=== PATIENT | male | born 1990 | race Caucasian/White ===

== ENCOUNTER 2018-05-15 00:51 | Inpatient (IN) | payer OTHER ==
[~2018-05-15] VITALS: Ht 198.1 cm; Wt 135.6 kg
[2018-05-15] MEDS ORDERED: CELEXA20 MG PO (01:02)
[2018-05-15 01:03] VITALS: BP 137/74
[2018-05-15 01:20] LABS: URINE BLOOD NEGATIVE (Negative); URINE CLARITY CLEAR; URINE COLOR DARK YELLOW; URINE GLUCOSE-RANDOM NEGATIVE (Negative); URINE LEUKOCYTES-REFLEX NEGATIVE (Negative); URINE NITRITE-REFLEX NEGATIVE (Negative); URINE PROTEIN TRACE (Negative); URINE SPECIFIC GRAVITY 1.015 (1.005-1.030)
[2018-05-15 01:21] LABS: ICTOTEST (BILI CONFIRMATORY) Positive (Negative); URINE BILIRUBIN 2+ (Negative); URINE KETONES 3+ (Negative)
[2018-05-15 01:31] LABS: ABSOLUTE LYMPHOCYTES 0.9 thou/uL (0.8-5.3); ABSOLUTE MONOCYTES 1.2 thou/uL (0.0-1.2); ABSOLUTE NEUTROPHILS 7.1 thou/uL (1.6-8.1); BASOPHILS 0.2 %; EOSINOPHILS 0.4 %; HEMATOCRIT 41.4 % (42.0-52.0); HEMOGLOBIN 13.9 gm/dL (14.0-18.0); LYMPHOCYTES 9.3 %; MCH 30.3 pg (26.0-34.0); MCHC 33.6 g/dL (28.0-37.0); MCV 90.2 fL (80.0-100.0); MONOCYTES 13.3 %; MPV 8.4 fl. (7.2-11.1); NUCLEATED RBCS 0 /100WBC; PLATELET COUNT* 210 thou/uL (150-400); POLYS 76.8 %; RBC 4.59 mil/uL (4.50-6.00); RDW-CV 13.7 % (10.5-14.5); WBC 9.2 thou/uL (4.0-11.0)
[2018-05-15 01:37] LABS: CALCIUM 9.1 mg/dL (8.5-10.1); CREATININE 0.8 mg/dL (0.6-1.3); POTASSIUM 3.6 mmol/L (3.5-5.1)
[2018-05-15 01:42] LABS: ALBUMIN 4.2 g/dL (3.4-5.0); TOTAL BILIRUBIN 3.5 mg/dL (<0.1-1.0); TOTAL PROTEIN 7.4 g/dL (6.4-8.2)
[2018-05-15 04:11] VITALS: BP 125/75
[2018-05-15 04:15] VITALS: BP 118/62
--- NOTE | 2018-05-15 04:57 | NUR ---
PATIENT ARRIVED BY CART FROM ER TO ROOM 113 IN STABLE CONDITION AT 0415. ALERT AND ORIENTED X4. DENIES PAIN/NAUSEA AT THIS TIME. AT BEDSIDE. VITALS STABLE. CONTINUE TO MONITOR.
[2018-05-15 08:19] VITALS: BP 109/56
[2018-05-15 11:42] LABS: INR 1.1; PROTIME 10.7 Seconds (9.20-11.50)
[2018-05-15 11:47] LABS: ALBUMIN 3.9 g/dL (3.4-5.0); DIRECT BILIRUBIN 0.9 mg/dL (<0.1-0.3); TOTAL BILIRUBIN 2.2 mg/dL (<0.1-1.0)
[2018-05-15 15:44] VITALS: BP 112/57
--- NOTE | 2018-05-15 16:00 | NUR ---
PT.GAVE PERMISSION FOR CM TO SPEAK WITH MOM AND GRANDMA PRESENT. HE SAID HE LIVES WITH HIS . HE IS INDEPENDENT AND WORKS. HE DOES NOT HAVE INSURANCE. GAVE HIM PACKET FOR THE UNINSURED ALONG WITH DISCOUNT DRUG CARD. DISCUSSED PACKET AND HOW TO OBTAIN FINANCIAL ASSISTANCE FORM FROM ADMITTING. MOTHER WAS APPRECIATIVE FOR THE INFORMATION.
[2018-05-15 21:00] VITALS: BP 104/61
--- NOTE | 2018-05-15 21:07 | NUR ---
ASSUMED CARES OF PT AT 0700. PT IN BED, BED IN LOW LOCKED POSITION, CALL BUTTON AND PERSONAL ITEMS IN PT REACH. PT A&O X4, VSS ON RA, HRRR PER AUSCULTATION/ALEENA. LCTAB, AFEBRILE, PERRLA. PT UP AD KRISH. OCC. PAIN AND NAUSEA, TREATED WITH MEDS, EFFECTIVE. SKIN INTACT. RIGHT AC 20 GAUGE IV PATENT TO FLUIDS/NS 100 ML/HR. CONSULTS - SURGERY AND GI. PT REFUSES SCD'S SO HE CAN GET UP HE WANTS. FAMILY AT BEDSIDE ALL SHIFT. POSSIBLE ERCP TOMORROW BASED ON MORNING LABS/BILIRUBIN. PT COOPERATIVE AND CALM. HOURLY ROUNDING COMPLETED. REPORT TO ELECTRICAL MAINTENANCE WORKER FOR CONTINUED CARES. PT PROGRESSING TOWARDS GOAL. REGULAR/VEGAN DIET TOLERATED. NPO AT MIDNIGHT TONIGHT.
[2018-05-16 04:05] LABS: ABSOLUTE EOSINOPHILS 0.2 thou/uL (0.0-0.7); ABSOLUTE LYMPHOCYTES 2.1 thou/uL (0.8-5.3); ABSOLUTE MONOCYTES 0.7 thou/uL (0.0-1.2); ABSOLUTE NEUTROPHILS 2.7 thou/uL (1.6-8.1); BASOPHILS 0.4 %; EOSINOPHILS 2.8 %; HEMOGLOBIN 12.6 gm/dL (14.0-18.0); LYMPHOCYTES 36.4 %; MCH 30.1 pg (26.0-34.0); MCHC 33.2 g/dL (28.0-37.0); MCV 90.8 fL (80.0-100.0); MONOCYTES 12.7 %; MPV 9.1 fl. (7.2-11.1); NUCLEATED RBCS 0 /100WBC; PLATELET COUNT* 170 thou/uL (150-400); POLYS 47.7 %; RBC 4.19 mil/uL (4.50-6.00); RDW-CV 13.4 % (10.5-14.5); WBC 5.7 thou/uL (4.0-11.0)
[2018-05-16 04:37] LABS: ALBUMIN 3.4 g/dL (3.4-5.0); CALCIUM 8.3 mg/dL (8.5-10.1); CREATININE 0.8 mg/dL (0.6-1.3); DIRECT BILIRUBIN 0.5 mg/dL (<0.1-0.3); POTASSIUM 3.9 mmol/L (3.5-5.1)
--- NOTE | 2018-05-16 06:00 | NUR ---
ALERT AND ORIENTED X4. UP AD KRISH IN ROOM. NPO AT THIS TIME. DENIES NEED FOR PAIN OR NAUSEA MEDICATION WHEN ASKED. IVF INFUSING WITHOUT DIFFICULTY. RESTING QUIETLY THROUGHOUT NIGHT. AT BEDSIDE. CALL LIGHT WITHIN REACH.
[2018-05-16 07:07] LABS: HEPATITIS B SURFACE AG Negative (Negative)
[2018-05-16 08:53] VITALS: BP 115/64
--- NOTE | 2018-05-16 09:52 | NUR ---
ASSUMED CARES OF PT AT 0700. PT IN BED, BED IN LOW LOCKED POSITION, CALL BUTTON AND PERSONAL ITEMS IN PT REACH. PT A&O X4, UP AD KRISH, VSS ON RA, AFEBRILE, SKIN INTACT, PERRLA. HRRR PER AUSCULTATION/ALEENA (50'S), LCTAB. RIGHT AC IV PATENT WITH FLUIDS AT 100 ML/HR. LAST BM LAST NIGHT. LOW TOLERABLE ABD PAIN, NO NAUSEA REPORTED. PT PROGRESSING TOWARDS GOAL. POSSIBLE ERCP TODAY, WAITING TO SEE DR. HOURLY ROUNDS CONTINUE. INDEPENDENT SHOWER SET UP FOR PT. WILL CONTINUE TO MONITOR PT PROGRESS AND STATUS.
[2018-05-16 15:45] VITALS: BP 103/50
[2018-05-16 20:00] VITALS: BP 113/61
--- NOTE | 2018-05-16 20:31 | NUR ---
REPORT TO PROFESSOR OF BIOLOGICAL SCIENCES FOR CONTINUED CARES. PT REMAINS STABLE. UP INDEPENDENTLY. IV IN RT AC PATENT WITH FLUIDS INFUSING, SEE MAR. PT NPO AFTER 0000 FOR ERCP TOMORROW MORNING. CONSENT TO BE SIGNED. HOURLY ROUNDING COMPLETED. ASSESSMENTS COMPLETED.
[2018-05-17 04:06] LABS: HEMATOCRIT 36.9 % (42.0-52.0); HEMOGLOBIN 12.3 gm/dL (14.0-18.0); MCH 30.4 pg (26.0-34.0); MCHC 33.4 g/dL (28.0-37.0); MCV 90.9 fL (80.0-100.0); RBC 4.06 mil/uL (4.50-6.00); RDW-CV 13.4 % (10.5-14.5); WBC 6.4 thou/uL (4.0-11.0)
[2018-05-17 04:26] LABS: ALBUMIN 3.4 g/dL (3.4-5.0); CALCIUM 8.4 mg/dL (8.5-10.1); CREATININE 0.7 mg/dL (0.6-1.3); DIRECT BILIRUBIN 0.3 mg/dL (<0.1-0.3); MAGNESIUM 1.7 mg/dL (1.8-2.4); PHOSPHORUS* 4.1 mg/dL (2.5-4.9); POTASSIUM 3.7 mmol/L (3.5-5.1); TOTAL BILIRUBIN 0.7 mg/dL (<0.1-1.0); TOTAL PROTEIN 6.1 g/dL (6.4-8.2)
[2018-05-17 06:09] VITALS: BP 113/61
--- NOTE | 2018-05-17 06:12 | NUR ---
UP AD KRISH IN ROOM. ALERT AND ORIENTED X4. DENIED NEED FOR PAIN OR NAUSEA MEDICATION. NPO SINCE MIDNIGHT. IVF INFUSING WITHOUT DIFFICULTY. CALL LIGHT WITHIN REACH. RESTED QUIETLY THROUGHOUT NIGHT.
[2018-05-17 07:24] VITALS: BP 113/61
[2018-05-17 10:20] VITALS: BP 140/77
--- NOTE | 2018-05-17 11:18 | NUR ---
ASSUMED CARES OF PT AT 0700. PT IN BED, BED IN LOW LOCKED POSITION, CALL BUTTON AND PERSONAL ITEMS IN PT REACH. PT A&OX4, PLEASANT, COOPERATIVE. PT WAS TAKEN TO PACU FOR ERCP AT 0720, FAMILY FOLLOWED. PT RETURNED TO FLOOR AT 1020, DROWSY, VSS ON RA, PAIN 6-8/10 PER PT VOICE. TWO NORCO ADMINISTERED, AND PRESSURE PILLOW TO SPLINT FOR PAIN NEEDED. FAMILY AT BEDSIDE. IV IN RIGHT AC PATENT WITH FLUIDS INFUSING-SEE MAR. CLEAR LIQUID DIET TO BE ADVANCED TOLERATED. HOURLY ROUNDING TO CONTINUE. LAP SITES IN TACT. PT RESTING IN BED AT THIS TIME. PT UP SBA TO BATHROOM. PT EDUCATED TO CALL FOR ASSISTANCE AND NOT AMBULATE ALONE, FAMILY UNDERSTOOD.
[2018-05-17 16:00] VITALS: BP 133/83
--- NOTE | 2018-05-17 19:03 | NUR ---
REPORT TO ELECTRICAL DESIGN TECHNICIAN FOR CONTINUED CARES. PT REMAINS STABLE, AMBULATING IN HALLWAY. PT STILL HAS PAIN, SOMEWHAT CONTROLLED BY NORCO 2 TABS. IV IN RIGHT AC PATENT WITH FLUIDS INFUSING, SEE MAR. HOURLY ROUNDING COMPLETED. FAMILY AT BEDSIDE. PT SHOULD D/C TOMORROW WITH MEDICINE APPROVAL. SURGICAL HAS SIGNED OFF FOR D/C. PT PROGRESSING TOWARDS GOAL. PT TOLERATING ADVANCED DIET TO REGULAR VEGITERIAN.
[2018-05-18 00:04] VITALS: BP 123/63
[2018-05-18 04:18] LABS: HEMOGLOBIN 12.6 gm/dL (14.0-18.0); MCH 30.2 pg (26.0-34.0); MCHC 33.3 g/dL (28.0-37.0); MCV 90.9 fL (80.0-100.0); RBC 4.18 mil/uL (4.50-6.00); RDW-CV 13.4 % (10.5-14.5); WBC 9.7 thou/uL (4.0-11.0)
[2018-05-18 04:35] LABS: ALBUMIN 3.5 g/dL (3.4-5.0); CALCIUM 8.4 mg/dL (8.5-10.1); CREATININE 0.8 mg/dL (0.6-1.3); POTASSIUM 3.6 mmol/L (3.5-5.1); TOTAL BILIRUBIN 0.5 mg/dL (<0.1-1.0); TOTAL PROTEIN 6.5 g/dL (6.4-8.2)
[2018-05-18 04:36] VITALS: BP 115/63
--- NOTE | 2018-05-18 05:29 | NUR ---
UP AD KRISH IN ROOM AND HALLWAY. ALERT AND ORIENTED X4. DENIES NEED FOR NAUSEA MEDICATION. PAIN MEDICATION GIVEN X1 AND HELPFUL. HAS FOUR DRY DRESSING ON ABDOMEN. FAMILY AT BEDSIDE. CALL LIGHT WITHIN REACH.
[2018-05-18 09:00] VITALS: BP 116/74
[2018-05-18] MEDS ORDERED: TYLENOL EXTRA500 MG PO (12:15)
[2018-05-18] MEDS ORDERED: IBUPROFEN 200200 M1 PO (12:15)
[2018-05-18] MEDS ORDERED: HYDROCODONE-AP1 EAC6 PO (12:16)
[2018-05-18 12:21] VITALS: BP 116/74
[2018-05-18 12:44] VITALS: BP 116/74
--- NOTE | 2018-05-18 12:44 | NUR ---
PATIENT HAS BEEN ALERT AND ORIENTED TODAY VERY PLEASANT. AT BEDSIDE TODAY. SOME COMPLAINTS OF MILD PAIN, NO MEDICATION NEEDED. UP AD KRISH IN ROOM AND HALLWAYS. PATIENT IS BEING DISCHARGED TO HOME WITH . PRESCRIPTIONS AND DISCHARGE INSTRUCTIONS GIVEN, QUESTIONS ANSWERED FOR PATIENT AND FAMILY. AMBULATED OUT TO CAR TO GO HOME.
--- NOTE | 2018-05-26 16:59 | CON ---
[address] [address] CONSULTATION Name: AMAURYLISBET MCCLOUD Room: [address] IN M.R.#: [id number] Admission: 05/15/18 Attend Phys: Santiago Choi MD Discharge: 05/18/18 Date of : 89 Report #: [id number] THIS REPORT FOR: //name// CC: Santiago Choi [facility] physician/PCP Los Mendoza DO DICTATED BY: Denisha Santiago [facility] DATE OF SERVICE: 05/15/2018 Please note at the time of this dictation, the patient was seen and physically examined by myself. REASON FOR CONSULTATION: Abdominal pain and elevated LFTs. HISTORY OF PRESENT ILLNESS: This is a pleasant 27-year-old male presented to the emergency room after having about 21 hours' worth of epigastric and right upper quadrant pain that started early a.m. around 3:00, which woke him up from his sleep. He did have some bouts of nausea and vomiting. He states initially his pain was not significant and progressively got worse prior to his admission, which he states he was rating it anywhere from an 8 to 9. Currently, at the time of this consultation, the patient's pain is under control and rating it at around 3 with help of pain medicine. He is no longer having any nausea or vomiting associated with this. The patient states over the last month, he has probably had 1 to 2 episodes of similar discomfort that would only last for maybe a couple of hours and then go away, no associated nausea or vomiting and the pain episodes were significantly less. He denied any fever or chills with any of these episodes. However, on the onset of the pain, he might notice a little bit of diarrhea associated with that. Otherwise, no other problems noted at this time. ALLERGIES: No known drug allergies. MEDICATIONS FROM HOME: Celexa. PAST MEDICAL HISTORY: Anxiety and depression. PAST SURGICAL HISTORY: None. FAMILY HISTORY: Rheumatoid arthritis. SOCIAL HISTORY: , alcohol socially, does not smoke, but vapes and denies any illegal drug use. REVIEW OF SYSTEMS: Twelve-point review [place] [address] CONSULTATION Name: LISBET REBOLLEDO Room: [address]#: [id number] Admission: 05/15/18 Attend Phys: Santiago Choi MD Discharge: 05/18/18 Date of : 89 Report #: [id number] except what is mentioned in the HPI. PHYSICAL EXAMINATION: VITAL SIGNS: Temperature 36.7, pulse 54, respirations 15, and blood pressure 109/56. HEART: Regular rate and rhythm. LUNGS: Clear. ABDOMEN: Soft, positive bowel sounds in all 4 quadrants with some right upper quadrant to epigastric tenderness noted to palpation. LABORATORY DATA: Hemoglobin 13.9, hematocrit 41.4, white count is 9.2, platelets 210. Sodium 138, potassium 3.6, chloride 102, CO2 of 26, BUN is 12, creatinine 0.8, GFR is 117 and glucose is 129. Total bili is 3.5, direct bili is 1.1, alk phos is 151, ALT 616, AST is 505, lipase is 82. CT of the abdomen and pelvis showed gallbladder stones with minimal periportal edema noted. Acute hepatitis panel is pending as well as a PT/INR. IMPRESSION: 1. Abdominal pain, epigastric and right upper quadrant. 2. Nausea and vomiting, improved. 3. Choledocholithiasis. 4. Transaminitis. 5. Family history of rheumatoid arthritis. PLAN: 1. MRCP today at 10:20. 2. Continue to be n.p.o. 3. We will recheck hepatic profile and PT/INR this a.m. 4. Depending on above results, the patient may need an ERCP. Thank you for allowing us to participate in this patient's care. Please do not hesitate to call with any questions in regard to this consult. ADDENDUM I have personally seen and examined the patient and reviewed labs and imaging. The patient with cholelithiasis who has had abdominal pain. The CT showed possible filling defect in the distal common bile duct, but MRCP did not reveal any apparent stone or ductal dilatation. The patient's bilirubin initially was 3.5 and now down to 2.2. The patient is comfortable; denies any abdominal pain, nausea, and vomiting. He has been given morphine a couple of hours ago. ASSESSMENT AND PLAN: The patient with abnormal liver enzymes and hyperbilirubinemia suggestive of possible [place] [address] CONSULTATION Name: AMAURYLISBETValdez MCCLOUD Room: [address] IN ..#: [id number] Admission: 05/15/18 Attend Phys: Santiago Choi MD Discharge: 05/18/18 Date of : 89 Report #: [id number] common bile duct as his LFTs are improving. He currently does not meet the criteria for ERCP as he does not have any ductal dilatation and his bilirubin is less than 4. We will repeat the LFTs in the morning and if bilirubin was elevated, we will consider ERCP. If bilirubin resolves, we will recommend the patient undergo laparoscopic cholecystectomy with IOC. This was explained to the patient and family and they are agreeable with plan. <ELECTRONICALLY SIGNED> By: Brooklyn Vazquez MD 05/26/18 1659 0939 1409Brooklyn Vazquez MD /nt
--- NOTE | 2018-06-05 11:09 | PATH ---
[address] [address] PATHOLOGY RPT PROCEDURE Name: LISBET REBOLLEDO Room: [address] IN M.R.#: [id number] Admission: 05/15/18 Date of : 89 Discharge: 05/18/18 Report #: [id number] Path Case #: [id number] [facility] Accession Number: [id number] . 01 Material submitted: . GALLBLADDER . 01 Clinical history: . Pre-op DX: Cholecystitis, cholelithiasis, abdominal pain Post-op DX: Cholecystitis, cholelithiasis . 02 Diagnosis: Gallbladder: - Chronic cholecystitis with cholesterolosis and cholelithiasis. . (MARIELA:mml; 05/19/2018) QLM/05/19/2018 . 02 Electronically signed: . Doni Baron MD, Pathologist NPI- [id number] . 01 Gross description: . The specimen is received in formalin, labeled "Lisbet Rebolledo, gallbladder" and consists of an intact green-samson and shiny gallbladder measuring 9.4 x 3.6 x 3.2 cm. Specimen reveals a green mucosa that is stippled with yellow highlights and an average wall thickness of 0.1 cm. There are multiple soft green calculi measuring up to 0.5 cm and no polyps or mass lesions. [employer] sections are submitted in A1. (SDY; 05/18/2018) SYU/SYU . 02 Pathologist provided ICD-10: K80.10 . 02 CPT . 194572 Performed at: [address], [place], [place] [address] MD Los Laureano MD Phone: [phone] Performed at: [address] [facility] [address] [place] [id number] MD Doni Baron MD Phone: [phone]
--- NOTE | 2018-06-30 14:30 | OP ---
[address] [address] OPERATIVE REPORT Name: LISBET REBOLLEDO Room: [address] IN M.R.#: [id number] Admission: 05/15/18 Attend Phys: Domenica Choi MD Discharge: 05/18/18 Date of : 89 Report #: [id number] THIS REPORT FOR: //name// CC: DOMENICA Choi [facility] physician/PCP Addendeum added 05/21/2018 DATE OF PROCEDURE: 05/17/2018 PREOPERATIVE DIAGNOSES: Cholelithiasis and hyperbilirubinemia. POSTOPERATIVE DIAGNOSES: Cholelithiasis and acute cholecystitis. PROCEDURE: Laparoscopic cholecystectomy with intraoperative cholangiogram. SURGEON: Levi Briggs DO WELDING MANAGER: Adrian Camilo DO, PGY2 resident. SECOND CANARY BREEDER: Wendi Kevin DO, PGY1 resident. ANESTHESIA: General endotracheal. ESTIMATED BLOOD LOSS: 20 mL COMPLICATIONS: None. DESCRIPTION OF PROCEDURE: After obtaining proper consents and discussing risks and complications with the patient and his family, he was taken to the operating room, laid in the supine position and administered general anesthesia. He was then prepped and draped in the usual fashion. A timeout was performed. We confirmed the appropriate patient and procedure. Preoperative antibiotics had been given. SCDs were in place. We then made a supraumbilical skin incision with #11 scalpel blade. This was carried down through the skin into the subcutaneous tissue using electrocautery for hemostasis. Once the fascia was encountered, it was incised along the midline, grasped and elevated with [facility] clamps and divided further. The peritoneum was then bluntly opened using a hemostat. A finger was placed inside the peritoneal cavity to assure that there were no laura-incisional adhesions. Next, 2-0 Vicryl sutures were placed in a lisuwz-as-yloan fashion to secure the Mattie trocar, which was then inserted and insufflation was begun. Once insufflation was complete, full visual inspection of the anterior abdominal organs was performed. This immediately revealed a dilated-appearing gallbladder. There was a large amount of omental fat. The liver appeared fatty as well. There were no other gross abnormalities. I then placed the patient in reverse Trendelenburg position. A 10-[place] [address] OPERATIVE REPORT Name: AMAURYLISBET AME Room: [address]#: [id number] Admission: 05/15/18 Attend Phys: Domenica Choi MD Discharge: 05/18/18 Date of : 89 Report #: [id number] in a subxiphoid position. Two 5 mm trocars were placed in the right flank. We were then able to grasp and elevate the gallbladder. There were some omental adhesions, which were taken down using blunt dissection as well as electrocautery. Once these were removed, we were able to identify Blanca pouch, which was grasped and elevated. The hepatoduodenal ligament was then stripped down from the gallbladder downward. I was then able to identify the cystic duct as it coursed directly into the gallbladder. We also obtained view of the common hepatic duct and common bile duct at this time. I next identified the cystic artery, which was dissected free as well. Both the duct and artery were dissected free. They were seen coursing directly into the gallbladder. We obtained a critical view of safety. At this point, I then placed a clip at the gallbladder cystic duct junction and inserted a cholangiogram catheter. A small david was made in the cystic duct and cholangiogram was performed. At first, the cholangiogram did not appear to show the cystic duct, although the clips were well distal to where the common bile duct was. There did appeared to be good flow into the hepatic radicles and also into the distal common bile duct and into the duodenum at this point; however, it was somewhat difficult to inject the contrast, so we went back and removed the cholangiogram catheter and the clip and dissected the cystic duct farther. The cystic duct was actually quite long and must have just had a clip on the cholangiogram catheter, which made it difficult to inject contrast, and then we were unable to visualize the cystic duct for some reason. When I replaced this and I repeated cholangiogram through the same hole, we could now see the cystic duct coursing directly into the common bile duct. The flow was much easier and there were no filling defects identified. We then removed the cholangiogram catheter, placed 3 clips proximally. I then clipped the cystic artery, and again before cutting anything, we obtained our critical view of safety. We then divided the cystic duct and cystic artery. The gallbladder was then removed from the liver bed using electrocautery. Once it was completely removed, we checked the cystic duct and cystic artery stumps as well as the liver bed for any leak or bleeding. We did irrigate the area to assure there was no bleeding or leak. Finding none, we then placed the gallbladder into an Endopouch. The insufflation was then stopped. All the air was released. Trocars were removed. The umbilical fascia was closed using the 2 previously placed 0 Vicryl sutures plus 2 additional 0 Vicryl suture. Skin incisions were all closed using 4-0 Monocryl subcuticular stitches. Mastisol, Steri-Strips, sterile OpSite and pressure dressings were placed. The patient tolerated the procedure well and was awakened in the operating room and transported to recovery [place] [address] OPERATIVE REPORT Name: AMAURYLISBET AME Room: [address] IN .R.#: [id number] Admission: 05/15/18 Attend Phys: Domenica Choi MD Discharge: 05/18/18 Date of : 89 Report #: [id number] ADDENDUM DATE OF PROCEDURE: 05/17/2018 The procedure was laparoscopic cholecystectomy with intraoperative cholangiogram using fluoroscopy and interpretation of the fluoroscopy as well. Please see the body of the report for the interpretation of the fluoroscopy, which was performed in the operating room. <ELECTRONICALLY SIGNED> By: Levi Briggs DO 06/30/18 1430 0921 1224Aandrews Briggs DO /nt
== END 2018-05-18 12:42 | disposition home or self-care (01) | DRG 418 ==
LOC: M.ERS 00:51 → M.ORTHSURG 03:52 → M.TBA-ER 03:52 → M.ORTHSURG 03:52 → M.ERS 04:12 → M.ORTHSURG 04:29
PROVIDERS: Nurse Practitioner Adult Health; Personal Emergency Response Attendant; Surgery; ADMIT Internal Medicine
DX: K80.00 Calculus of gallbladder with acute cholecystitis without obstruction (principal); K80.42 Calculus of bile duct with acute cholecystitis without obstruction; F41.9 Anxiety disorder, unspecified; F32.9 Major depressive disorder, single episode, unspecified; K76.89 Other specified diseases of liver; E80.6 Other disorders of bilirubin metabolism; R74.0 Nonspecific elevation of levels of transaminase and lactic acid dehydrogenase [LDH]; E86.0 Dehydration; Z82.61 Family history of arthritis; Z79.899 Other long term (current) drug therapy